=== PATIENT | female | born 1995 | race Caucasian/White ===

== ENCOUNTER 2021-08-21 20:20 | Inpatient (IN) ==
[2021-08-21] MEDS ORDERED: LACTATED RINGERS 250 ML IV ONE (20:33)
[2021-08-21] MEDS ORDERED: TRANEXAMIC ACID 1,000 MG in SODIUM CHLORIDE 0.9% 100 ML IV PRN (20:33)
[2021-08-21] MEDS ORDERED: CARBOPROST TROMETHAMINE 250 MCG/ML AMP IM PRN (20:33)
[2021-08-21] MEDS ORDERED: LACTATED RINGERS 500 ML IV PRN (20:33)
[2021-08-21] MEDS ORDERED: OXYTOCIN/LR 20 UNIT/1,000 ML BAG IV ONE (20:33)
[2021-08-21] MEDS ORDERED: miSOPROStoL 200 MCG TABLET RECTAL PRN (20:33)
[2021-08-21] MEDS ORDERED: MEPERIDINE 50 MG/1 ML VIAL IV PRN (20:33)
[2021-08-21] MEDS ORDERED: ONDANSETRON 4 MG/2 ML VIAL IV PRN (20:33)
[2021-08-21] MEDS ORDERED: METHYLERGONOVINE 0.2 MG/1 ML AMP IM PRN (20:33)
[2021-08-21] MEDS: LACTATED RINGERS 1,000 ML IV SCH (21:11)
[2021-08-21 21:19] LABS: Basophils # 0.1 10*3/uL (0.0-0.2); Basophils % 0.6 % (0.0-0.8); Eosinophils # 0.1 10*3/uL (0.0-0.87); Eosinophils % 1.1 % (0.00-10.9); Hematocrit 31.3 VOL% (35.7-47.0); Hemoglobin 10.2 GM/DL (12.0-16.0); Immature Granulocytes % 1.3 %; Immature Granulocytes Absolute 0.17 #; Lymphocytes # 2.9 10*3/uL (1.4-4.0); Lymphocytes % 23.1 % (21.3-54.2); Mean Corpuscular HGB Conc 32.6 GM/DL (32-36); Mean Corpuscular Volume 81.9 FL (87-102); Mean Platelet Volume 10.6 FL (9.6-12.0); Monocytes # 1.1 10*3/uL (0.11-0.8); Monocytes % 8.3 % (1.7-12.7); Neutrophils % 65.6 % (38.7-73.9); Platelet Count 318 T/CUMM (130-400); Red Blood Count 3.82 MC/CUMM (3.8-5.5); Red Cell Distribution Width 13.2 % (9.3-17.3); White Blood Count 12.7 T/CUMM (4-12)
[2021-08-22] MEDS: BUTORPHANOL 1 MG/ML VIAL IV PRN ×2 (06:26→09:26)
[2021-08-22] MEDS: METOPROLOL TARTRATE 25 MG TABLET PO SCH ×2 (09:36→22:51)
[2021-08-22] MEDS ORDERED: ePHEDrine 50 MG/ML VIAL IV PRN (10:30)
[2021-08-22] MEDS ORDERED: CITRIC ACID/SODIUM CITRATE 30 ML UDCUP PO ONE (10:30)
[2021-08-22] MEDS ORDERED: hydrOXYzine HCL 25 MG/1 ML VIAL IM PRN (10:30)
[2021-08-22] MEDS ORDERED: PROMETHAZINE 25 MG/1 ML VIAL IM ONE (10:30)
[2021-08-22] MEDS ORDERED: fentaNYL 2 MCG/ROPIV 0.2% EPID 100 ML EPIDURAL SCH (10:30)
[2021-08-22] MEDS ORDERED: FAMOTIDINE 20 MG/2 ML VIAL IV ONE (10:30)
[2021-08-22] MEDS ORDERED: LACTATED RINGERS 1,000 ML IV ONE (10:30)
[2021-08-22] MEDS ORDERED: diphenhydrAMINE 50 MG/1 ML VIAL IV PRN ×2 (10:30)
[2021-08-22] MEDS ORDERED: ONDANSETRON 4 MG/2 ML VIAL IV ONE (10:30)
[2021-08-22] MEDS ORDERED: NALOXONE 0.4 MG/ML VIAL IV PRN (10:30)
[2021-08-22] MEDS ORDERED: OXYTOCIN/LR 20 UNIT/1,000 ML BAG IV SCH (11:30)
[2021-08-22 12:48] LABS: Mucus,Urine Occasional /LPF (Occasional)
[2021-08-22 12:49] LABS: Bilirubin,Urine Negative (Negative); Blood, Urine Trace mg/dL (Negative); Glucose,Urine (UA) Negative (Negative); Ketones,Urine Trace mg/dL (Negative); Nitrite,Urine Negative (Negative); Protein,Urine Trace mg/dL (Negative); Urine Appearance Clear (Clear); Urine Color Yellow (Yellow); Urine Urobilinogen 0.2 eU/dL (<2.0)
[2021-08-22] MEDS: LACTATED RINGERS 1,000 ML IV SCH (14:17)
[2021-08-22] MEDS ORDERED: miSOPROStoL 200 MCG TABLET ONE (15:16)
[2021-08-22] MEDS ORDERED: CARBOPROST TROMETHAMINE 250 MCG/ML AMP IM ONE (15:16)
[2021-08-22] MEDS ORDERED: METHYLERGONOVINE 0.2 MG/1 ML AMP ONE (15:16)
[2021-08-22] MEDS ORDERED: SODIUM CHLORIDE 0.9% 0 ML IV ONE (15:16)
[2021-08-22] MEDS ORDERED: TRANEXAMIC ACID 1,000 MG/10 ML VIAL ONE (15:16)
[2021-08-22 17:16] LABS: Cord Arterial Blood HCO3 18.4 MMOL/L
[2021-08-22 17:19] LABS: Cord Venous Blood PCO2 46.3 MMHG
[2021-08-22] MEDS ORDERED: IBUPROFEN 800 MG TABLET PO PRN (19:11)
[2021-08-22] MEDS ORDERED: oxyCODONE/ACETAMINOPHEN 5-325 MG TABLET PO PRN (20:56)
[2021-08-22] MEDS ORDERED: DIPH/TET/ACEL PERT BOOSTER VACCINE 0.5 ML VIAL IM ONE (20:56)
[2021-08-22] MEDS ORDERED: HYDROCORTISONE 2.5% RECTAL CREAM 30 GM TUBE TOP PRN (20:56)
[2021-08-22] MEDS ORDERED: LANOLIN 50% CREAM 0.3 OZ TUBE TOP PRN (20:56)
[2021-08-22] MEDS ORDERED: RHO(D) IMMUNE GLOBULIN 300 MCG SYRINGE IM ONE (20:56)
[2021-08-22] MEDS ORDERED: BISACODYL 10 MG SUPP RECTAL PRN (20:56)
[2021-08-22] MEDS ORDERED: OXYTOCIN/LR 20 UNIT/1,000 ML BAG IV ONE (20:56)
[2021-08-22] MEDS ORDERED: BENZOCAINE 20%/MENTHOL 0.5% SPRAY 56 GM CAN TOP PRN (20:56)
[2021-08-22] MEDS ORDERED: ONDANSETRON 4 MG/2 ML VIAL IV PRN (20:56)
[2021-08-22] MEDS ORDERED: WITCH HAZEL PADS 100/JAR TOP PRN (20:56)
[2021-08-22] MEDS ORDERED: ACETAMINOPHEN 325 MG TABLET PO PRN (20:56)
[2021-08-22] MEDS ORDERED: MEASLES/MUMPS/RUBELLA VACCINE 0.5 ML VIAL SUBCUT ONE (20:56)
[2021-08-22] MEDS ORDERED: ACETAMINOPHEN/CODEINE 300-30 MG TABLET PO PRN (21:11)
[2021-08-22] MEDS: DOCUSATE SODIUM 100 MG CAPSULE PO SCH (21:31)
[2021-08-23] MEDS: oxyCODONE/ACETAMINOPHEN 5-325 MG TABLET PO PRN ×4 (02:17→19:47)
[2021-08-23 05:29] LABS: Basophils # 0.1 10*3/uL (0.0-0.2); Basophils % 0.3 % (0.0-0.8); Eosinophils # 0.2 10*3/uL (0.0-0.87); Eosinophils % 0.9 % (0.00-10.9); Hemoglobin 8.9 GM/DL (12.0-16.0); Immature Granulocytes % 0.9 %; Immature Granulocytes Absolute 0.17 #; Lymphocytes # 2.6 10*3/uL (1.4-4.0); Mean Corpuscular HGB Conc 31.8 GM/DL (32-36); Mean Corpuscular Volume 84.3 FL (87-102); Mean Platelet Volume 10.5 FL (9.6-12.0); Monocytes # 1.8 10*3/uL (0.11-0.8); Monocytes % 9.8 % (1.7-12.7); Neutrophils % 74.1 % (38.7-73.9); Platelet Count 247 T/CUMM (130-400); Red Blood Count 3.32 MC/CUMM (3.8-5.5); Red Cell Distribution Width 13.3 % (9.3-17.3); White Blood Count 18.5 T/CUMM (4-12)
[2021-08-23] MEDS: METOPROLOL TARTRATE 25 MG TABLET PO SCH ×2 (09:51→22:10)
[2021-08-23] MEDS: DOCUSATE SODIUM 100 MG CAPSULE PO SCH ×2 (09:51→22:09)
[2021-08-23] MEDS: IBUPROFEN 800 MG TABLET PO PRN ×2 (09:55→14:40)
[2021-08-23] MEDS ORDERED: RHO(D) IMMUNE GLOBULIN 300 MCG SYRINGE IM ONE (17:00)
[2021-08-24] MEDS: IBUPROFEN 800 MG TABLET PO PRN (04:36)
[2021-08-24] MEDS: oxyCODONE/ACETAMINOPHEN 5-325 MG TABLET PO PRN ×2 (04:37→08:37)
[2021-08-24] MEDS: DOCUSATE SODIUM 100 MG CAPSULE PO SCH (08:27)
[2021-08-24] MEDS: METOPROLOL TARTRATE 25 MG TABLET PO SCH (08:37)
[2021-08-24 09:07] VITALS: BP 122/77
== END 2021-08-24 13:24 | disposition home or self-care (01) | DRG 807 ==
LOC: N.LDOUT 20:20 → N.LD 20:23 → N.OB 08-22 20:45
PROVIDERS: ADMIT Specialist; ATTEND Specialist